=== PATIENT | male | born 1955 | race Caucasian/White ===

== ENCOUNTER 2021-06-04 09:10 | Day surgery (SDC) | payer MEDICARE, OTHER ==
[~2021-06-04 09:10] MED LIST: Lactated Ringers 1,000 ML IV SCH
[2021-06-04] MEDS ORDERED: Propofol 200 MG/20 ML SDV ONE ×2 (11:09→12:17)
[2021-06-04] MEDS ORDERED: fentaNYL 100 MCG/2 ML SDV ONE (11:09)
--- NOTE | 2021-06-09 11:36 | OR ---
PREOPERATIVE DIAGNOSES: 1. Change in bowel habits with a recent constipation, status post previous hernia surgery in 09/2018. 2. Left lower quadrant pain related to above. 3. Positive family history of colon cancer in father who was diagnosed with this and from this in his 80s recently. 4. Patient's last colonoscopy was about 11 years ago and was normal. POSTOPERATIVE DIAGNOSES: 1. 4 mm cecal polyp removed with several bites using cold forceps. 2. Normal-appearing distal ileum. 3. Somewhat tortuous colon, especially in the sigmoid area. I suspect there is some adhesions present status post hernia surgery. 4. Mild sigmoid diverticulosis. PROCEDURE: Colonoscopy with polypectomy x1 using cold forceps. SURGEON: Moses Elizabeth M.D. ANESTHESIA: Monitored anesthesia care. BOWEL PREP: Good. Edmund is a 65-year-old male was brought to the endoscopy suite after discussing risks and benefits of the procedure. Informed consent was obtained for conscious sedation and colonoscopy with or without biopsy and/or polypectomy. We also discussed possibility of missed lesions. Pre-procedure exam was unremarkable. IV, oxygen, and monitors were placed. The patient was placed in the left lateral decubitus position. Sedation was administered and a digital rectal exam was performed and unremarkable. Colonoscope was passed into the rectum and slowly advanced all the way to the cecum. Patient had somewhat tortuous colon, especially in the sigmoid area. Cecum was viewed and photographed. Ileocecal valve was intubated and distal ileum was normal in appearance. Within the cecum, there was a 4-mm cecal polyp noted which was removed using 3 bites of the cold forceps. The colonoscope was slowly withdrawn and the mucosa was closed observed in a direct circumferential manner. The ascending colon was unremarkable. The transverse colon was unremarkable. The descending colon was unremarkable. The sigmoid colon revealed some mild diverticulosis. Retroflexion was performed and rectal mucosa was unremarkable. Scope was removed. The patient tolerated the procedure well. The patient was monitored until that baseline status. Discharge instructions were reviewed and the patient was discharged in good condition. COMPLICATIONS: None. TOTAL TIME: 25 minutes. ESTIMATED BLOOD LOSS: 1 to 2 mL. RECOMMENDATIONS/FOLLOW-UP: We will await results of path report to determine ideal followup interval. I would like to kindly thank Rose De La Garza for this referral. DMB: 06/04/2021 13:04:50 MODL: 06/04/2021 19:24:45 /[id number]
== END 2021-06-04 13:50 | disposition home or self-care (01) ==
LOC: VM.SDS 09:10
PROVIDERS: ATTEND Family Medicine
DX: D12.0 Benign neoplasm of cecum (principal); K57.30 Diverticulosis of large intestine without perforation or abscess without bleeding; K63.89 Other specified diseases of intestine; I10 Essential (primary) hypertension; E78.5 Hyperlipidemia, unspecified; R73.01 Impaired fasting glucose; Z98.890 Other specified postprocedural states; Z80.0 Family history of malignant neoplasm of digestive organs; Z79.899 Other long term (current) drug therapy; Z87.891 Personal history of nicotine dependence
CPT/HCPCS: 00811; 88305; J2704; J3010; J7120